=== PATIENT | male | born 1965 | race Caucasian/White ===

== ENCOUNTER 2025-05-11 22:06 | Emergency (ER) | payer OTHER ==
[~2025-05-11] VITALS: Ht 170.2 cm; Wt 79.5 kg
[2025-05-11 23:40] VITALS: TEMP 98.105288
[2025-05-12 01:15] VITALS: BP 136/74; PULSE 66; RESP 18; O2SAT 100
[2025-05-12] MEDS: BACITRACIN 28 GM OINTMENT TP ONE (01:32)
== END 2025-05-12 01:40 | disposition home or self-care (01) ==
LOC: EMS 22:35
DX: T26.31XA Burns of other specified parts of right eye and adnexa, initial encounter (principal); Y92.89 Other specified places as the place of occurrence of the external cause
CPT/HCPCS: 99283